=== PATIENT | female | born 1960 | race Caucasian/White ===

== ENCOUNTER 2023-03-21 17:47 | Emergency (ER) | payer OTHER, SELFPAY ==
--- NOTE | ~2023-03-21 | XR_ITS ---
EXAMINATION: XR SHOULDER, RIGHT CLINICAL INFORMATION: Trauma. COMPARISON: None available. TECHNIQUE: AP external rotation, Grashey, scapular Y, and axillary views of the right shoulder. FINDINGS: The bone mineralization is normal. There is a comminuted displaced fracture of the right humeral neck/metaphyses with a vertical component extending to the greater tuberosity. There is no dislocation. The soft tissues are unremarkable. XR/XR shoulder RT min 2V IMPRESSION: Comminuted displaced fracture right humeral neck/metaphyses extending to the greater tuberosity.
[2023-03-21 17:56] VITALS: BP 152/63; PULSE 53; PULSE 59; RESP 15; TEMP 36.4; O2SAT 98; O2SAT 99; BMI 24.6
--- NOTE | 2023-03-21 18:06 | ED.EXTPRO ---
HPI - Extremity Problem General Chief complaint: Extremity Injury, Upper Stated complaint: shoulder dislocation per ems Time Seen by Provider: 03/21/23 17:48 Source: patient and EMS Mode of arrival: EMS Limitations: no limitations History of Present Illness HPI Narrative: 62-year-old female presents with acute right shoulder pain. The pain is severe. Worse with movement. The pain does not radiate. There is no numbness or tingling. The pain is a 10/10. There was probed no prior treatment. Patient basically was holding 2 things in her arms, tried stepping over a dog gate, fell on collapsed and landed on her right shoulder. She did hit some cabinetry with her head/ face but did not lose consciousness and reports no headache, nausea, vomiting, loss consciousness or any focal neurologic deficits. Related Data Previous Rx's Medication Instructions Recorded methocarbamol 500 mg tablet 500 mg PO Q8H PRN spasms #14 tabs 03/21/23 oxycodone 5 mg tablet 5 mg PO Q6H PRN pain #14 tabs 03/21/23 Allergies Allergy/AdvReac Type Severity Reaction Status Date / Time No Known Allergies Allergy Verified 03/21/23 17:56 Review of Systems Review of Systems: CONSTITUTIONAL: Denies weight loss, fever and chills. HEENT: Denies changes in vision and hearing. RESPIRATORY: Denies SOB and cough. CV: Denies palpitations no CP. GI: Denies abdominal pain, nausea, vomiting and diarrhea. : Denies dysuria and urinary frequency. MSK: + myalgia and joint pain. SKIN: Denies rash and pruritus. NEUROLOGICAL: Denies headache and syncope. PSYCHIATRIC: Denies recent changes in mood. Denies anxiety and depression. All other ROS are negative unless in HPI [facility] Social History Social History Alcohol intake: current Alcohol intake frequency: holidays/special occasions only Smoked in Last 30 Days: No Use of substances other than those prescribed or required for medical reasons: No Advance Directives: No Advance Directives Information Provided: No Physical Exam Vital Signs: Vital Signs: Last Vital Signs Temp 97.6 F 03/21/23 17:56 Pulse 53 03/21/23 17:56 Resp 15 03/21/23 17:56 BP 152/63 H 03/21/23 17:56 Pulse Ox 98 08/23/23 17:56 O2 Del Method Room Air 03/21/23 17:56 BMI result Body Mass Index 24.6 GEN: Well developed, no acute distress, alert, oriented HEENT: Normocephalic, Right eyebrow abrasion contusion, right lower lip contusion, normal external ears, nose appears normal, no oropharyngeal edema or exudates Eyes: Normal to appearance Neck: Supple, no lymphadenopathy Respiratory: Talks in complete sentences, no respiratory distress, clear to auscultation bilaterally Cardiovascular: Regular rate and rhythm, no murmurs rubs or gallops Abdomen: Soft, nontender, nondistended, no guarding, no rebound Back: No CVA tenderness Extremities: No clubbing cyanosis or edema, tenderness to the right shoulder, no deformity, NVI Neurologic: No focal neurologic deficits, cranial nerves 2-12 intact, strength is 5/5 bilaterally Skin: No rash Course Reevaluation(s) Reevaluation #1: x-ray confirms comminuted right shoulder fracture, will place in a shoulder immobilizer. Will contact Orthopedics. Suspect this is non operative issue. In any event, patient is in from [place] and may opt to go back for treatment down [facility]. Time: 18:11 Reevaluation #2: intravenous morphine did not assist the patient with her distal last her. Will discharge her following additions shoulder immobilizer. Time: 18:55 Medications Administered Discontinued Medications Generic Name Dose Route Start Last Admin Trade Name Freq PRN Reason Stop Dose Admin Morphine Sulfate 4 mg 03/21/23 17:56 03/21/23 18:15 Morphine Sulfate 4 Mg/Ml Cartridge IVPUSH 03/21/23 17:57 4 mg ONCE ONE Administration Protocol Medical Decision Making Medical Decision Making MDM Narrative: 62-year-old female presents with acute right shoulder pain following trauma direct injury. There is no deformity. She is neurovascular intact. Suspect fracture. Does not appear to be dislocated. Will obtain an x-ray. Will provide patient with IV analgesia. Suspect patient will need a shoulder immobilizer. Differential diagnosis includes fracture, contusion, sprain, strain, dislocation. Although patient had a head injury, is minor in nature. She did not lose consciousness and has no symptoms. Will defer imaging at this time. Patient can always return her be revaluated to have further imaging studies done. Differential Diagnosis Differential Diagnoses: The differential diagnosis associated with the presentation includes ( See above) Admission/Observation Consideration of admission/observation: Escalation of care including admission/observation considered Independent Interpretation I performed an independent interpretation of an: Plain X-Ray ( right shoulder: Acute comminuted humeral head fracture) Independent Historian Clinical information obtained from an independent historian. History obtained from or confirmed by: Spouse and EMS Prescription Management I considered prescription management with: Pain Medication Chronic Conditions Patient?s care impacted by: Other ( hypothyroidism) Discharge Plan Discharge Clinical Impression: Fracture of head of humerus Patient Disposition: Home, Self-Care Instructions: Arm Fracture in Adults (ED), Shoulder Immobilizer (ED) Additional Instructions: For Pain: Tylenol 1000 mg every 6 hours as needed Oxycodone 5 mg every 6 hours as needed For Muscle Spasm: Methocarbamol 500 mg every 8 hours as needed Recommend stool softener colace 100 mg twice a day Prescriptions: New oxycodone 5 mg tablet 5 mg PO Q6H PRN (Reason: pain) Qty: 14 0RF Rx Instructions: Partial Fill upon patient request. methocarbamol 500 mg tablet 500 mg PO Q8H PRN (Reason: spasms) Qty: 14 0RF Referrals: Juan C Giron MD [Physician] - 1 day
[2023-03-21] MEDS: Morphine Sulfate 4 MG/ML CARTRIDGE IVPUSH (18:15)
[2023-03-21] MEDS: HYDROmorphone HCl 2 MG TABLET PO (19:15)
== END 2023-03-21 19:46 | disposition home or self-care (01) ==
PROVIDERS: Emergency Provider Emergency Medicine
DX: S42.301A Unspecified fracture of shaft of humerus, right arm, initial encounter for closed fracture (principal); M79.601 Pain in right arm; W01.0XXA Fall on same level from slipping, tripping and stumbling without subsequent striking against object, initial encounter; Y93.9 Activity, unspecified; Y92.9 Unspecified place or not applicable; Y99.9 Unspecified external cause status
CPT/HCPCS: 73030; 96374; 99284; J2270